=== PATIENT | male | born 1995 | race Caucasian/White ===

== ENCOUNTER 2018-06-15 19:07 | Emergency (ER) | payer OTHER ==
[~2018-06-15] VITALS: Ht 177.8 cm; Wt 87.8 kg
[2018-06-15 19:21] VITALS: BP 146/97
== END 2018-06-15 21:02 | disposition home or self-care (01) ==
LOC: ED 20:59
DX: H57.89 Other specified disorders of eye and adnexa (principal); Y04.0XXA Assault by unarmed brawl or fight, initial encounter
CPT/HCPCS: 70486; 99284